=== PATIENT | female | born 1940 | race Caucasian/White ===

== ENCOUNTER → 2024-05-29 11:19 | Outpatient (REF) | payer MEDICARE, SELFPAY | LOC: RCS 11:19 | PROVIDERS: ATTENDING PHYSICIAN Internal Medicine Cardiovascular Disease; FAMILY PHYSICIAN Family Medicine | DX: I34.0 Nonrheumatic mitral (valve) insufficiency (principal) | CPT/HCPCS: 93306 ==

== ENCOUNTER 2024-09-14 06:58 | Day surgery (SDC) | payer MEDICARE, SELFPAY | END 2024-09-14 09:45 | disposition home or self-care (01) | LOC: CATH 06:58 | PROVIDERS: ATTENDING PHYSICIAN Internal Medicine Cardiovascular Disease; FAMILY PHYSICIAN Family Medicine; OTHER PHYSICIAN Internal Medicine Cardiovascular Disease | DX: I48.91 Unspecified atrial fibrillation (principal); I08.1 Rheumatic disorders of both mitral and tricuspid valves; I08.8 Other rheumatic multiple valve diseases | CPT/HCPCS: 93312; 93320; 93325 ==

== ENCOUNTER 2024-10-26 16:00 | Inpatient (IN) | payer MEDICARE, SELFPAY ==
[2024-10-22 08:39] VITALS: BMI 24.5
[2024-10-22 10:52] LABS: Urine Character Clear (Clear)
[2024-10-22 10:59] LABS: Hematocrit 36.3 % (37.0-47.0); Hemoglobin 12.0 g/dL (12.0-16.0); Mean Corp Hgb Conc. 33.1 g/dL (33.0-37.0); Mean Corpuscular Volume 97.3 fL (81.0-99.0); Nucleated Red Blood Cells % 0 %; Platelet Count 166 10^3/uL (130-400); Red Cell Dist. Width 14.1 % (11.5-14.5)
[2024-10-22 11:06] LABS: INR 0.97; PT 13.2 Sec (11.4-14.6)
[2024-10-22 11:15] LABS: Glycohemoglobin (HgbA1c) 5.7 % (4.0-5.6)
[2024-10-22 11:16] LABS: ALT (SGPT) 34 U/L (0-35); AST (SGOT) 42 U/L (14-36); Albumin 4.2 g/dl (3.5-5.0); Alkaline Phosphatase 48 U/L (38-126); Blood Urea Nitrogen 24 mg/dl (7-17); Calcium 9.4 mg/dl (8.4-10.2); Carbon Dioxide 32 mmol/L (22-30); Chloride 104 mmol/L (98-107); Estimated Creatinine Clearance 44 ml/min; Glucose 95 mg/dl (70-99); Potassium 4.3 mmol/L (3.5-5.1); Sodium 138 mmol/L (135-145); Total Protein 6.5 g/dl (6.3-8.2); eGFR > 60.00
--- NOTE | 2024-10-22 11:33 | CM ---
CM following for DC planning needs.
Met w/ patient during PATs for planned MitraClip.
Pt. tells me that she resides in a private, 1 STH w/ sig. other, Rayo. patient is functionally indep. at baseline w/ ADLs, mobility without the use of any assisted device.
Reviewed pre and post op routines.
Soap, shower instructions + MitraClip paperwork provided, reviewed.
Post op MD appointments, Cardiac Rehab, visit from [facility] reviewed.
Reviewed post op restrictions to include lifting, driving restrictions.
Plan for MitraClip 10/26.
Antic. DC plan is for home w/ [facility]itional [facility] RN.
CM to follow.
[2024-10-26] VITALS (26 sets, daily range): BP systolic 93–169; BP diastolic 51–80; BMI 22.7
[2024-10-26] MEDS: BACTROBAN 2% OINTMENT 1 APPLIC NASAL (06:00)
--- NOTE | 2024-10-26 06:11 | PTCARENOTE ---
Admitted pt to room 2252 at 0530 for scheduled TAVR. Pt aaox3, [place], [place] left at home. SR on tele monitor, VSS. Neurocheck WNL. Pt denies pain/discomfort or SOB, admission questionary completed, medications verified, chest/ groins clipped, CHG wipes
complete.Pt and family updated on plan of care and in agreement. Call mack within reach.
[2024-10-26] MEDS: ANCEF 10 IV (08:03)
[2024-10-26 08:49] LABS: ACT-LR - POC 305 Seconds (116-155)
[2024-10-26 09:11] LABS: ACT-LR - POC 390 Seconds (116-155)
--- NOTE | 2024-10-26 09:58 | CM ---
Addendum entered by Yumiko Riley 10/26/24 15:30:
Reviewed chart. Met with Mrs. Jacob and her significant other to review discharge plans. She states prior to admission she resides with her significant other in a two story home with one step to enter. She states she resides on the first floor.
She states her daughter resides on the second floor. She states prior to admission she was independent with ambulation and adls. She states she does not have any DME in the home. She states she has a prescription plan and uses [facility]. We
reviewed a home visit by the Transitional Care Nurse. She is agreeable to a home visit. Medical work-up in progress. The discharge plan is to return home with her significant other and a home visit by the Transitional Care Nurse when medically
stable.
Original Note:
Reviewed chart. Mrs. Jacob is in the operating room today. Prior to admission she resides with her significant She does not other in a one story home. Prior to admission she was independent with ambulation and adls. She does not have any DME in
the home. She has a prescription plan and uses [facility]. Medical work-up in progress. The discharge plan is to return home with her significant other and a home visit by the Transitional Care Nurse when medically stable.
--- NOTE | 2024-10-26 10:12 | ITS.CL.PN ---
Golf Club Facer - Procedure Note
Procedure
Procedure Note:
Mitral Valve Transcatheter Weha-qk-Beys Repair with MitraClip
Date of Procedure: 10/26/2024
Referring: Dr. Prince Stephenson MD
Indication: symptomatic severe mitral valve regurgitation at high surgical risk
Operators: Nancy Gage MD (interventional cardiology, co-mechanical shovel operator); Jan Isaac MD, PhD (interventional cardiology, co-mechanical shovel operator); Berry Nair MD, PhD (cardiac imaging)
Anesthesia: general anesthesia provided by the anesthesia staff
PROCEDURE: mitral transcatheter edge to edge repair with Mitraclip XTW clip
ACCESS: 25F femoral vein (closure: Perclose x2) - Ultrasound was utilized for vascular access. The vessel was visualized under ultrasound and noted to be patent. An image of the vessel was stored permanently in the patient's medical record. Under
direct ultrasound guidance, vascular access was obtained using a modified Seldinger technique and a 8 Occ[place] sheath was placed.
PROCEDURE NARRATIVE:
The patient was intubated and sedated by anesthesiology and then prepped and draped in standard sterile fashion. A LUIZA probe was placed by cardiology and imaging performed demonstrating no left atrial appendage thrombus and no pericardial effusion.
Under general anesthesia, mitral regurgitation was noted to be more moderate-severe (compared to definitively severe of prior LUIZA imaging). Under ultrasound guidance, the right femoral vein was accessed. Two Perclose ProGlide sutures were placed in
preclose fashion and an 8F sheath placed. Heparin was administered to achieve ACT>300.
Via the 8F sheath, a J-wire was placed in the SVC. The 8F sheath was exchanged for an 8.5F [place] VersaCross Sheath and the J-wire exchanged for a [place] VersaCross RF wire. Under LUIZA guidance, the sheath was navigated to an appropriate posterior
superior portion of the septum. In a 4-chamber view, height above the mitral valve annulus was measured at 4 cm. Under RF application, the RF wire crossed into the LA and position was verified in the left upper pulmonary vein on LUIZA. The sheath was
advanced through the septum to dilate the septum. The sheath was then removed, and serial dilation of the venous access site performed followed by placement of the MitraClip sheath which was advanced to the septum and crossed into the left atrium
followed by removal of the wire and dilator. Left atrial pressure was measured at 16 mmHg.
Initial clip strategy was to place a single XTW clip over the main jet originating at the lateral aspect of P2. A MitraClip XTW clip delivery system was prepared on the back table and advanced to the tip of the sheath. Under LUIZA guidance, the clip
was advanced out of the sheath to straddle position and carefully maneuvered until it was centralized above the valve plane. The clip was opened and grippers checked. Clip position, orientation, and trajectory were iteratively adjusted under 2D and
3D LUIZA guidance. In a grasping view, the clip was crossed into the LV. Position and orientation were again verified with 2D and 3D LUIZA. The clip was carefully pulled back until anterior and posterior leaflet capture was observed and the grippers
were then dropped with tissue capture observed. The clip was then closed to 60 degrees, capture was verified, and the clip was then fully closed. Mitral regurgitation was assessed as mild. Mitral gradient was 2 mmHg. Based on this, the decision was
made to release the clip. Clip release was performed in the usual fashion and the clip was verified to be stable on LUIZA and fluoroscopy after release. There was no significant change in MR or mitral gradients post release. The CDS was removed with
the guide aspirated. Left atrial pressure was measured at 15 mmHg. The sheath was removed from the LA and there was observed to be an expected ASD without significant R-L flow. There was no effusion. The sheath was removed from the venotomy and the
venotomy closed with deployment of the PerClose sutures with excellent hemostasis verified. This concluded the procedure. The patient was extubated by anesthesia and taken to the cath recovery unit in stable condition.
CONCLUSIONS: mitral transcatheter [id number]-gi-lbvi repair with placement of single Mitraclip XTW clip with reduction MR from moderate-severe to mild
RECOMMENDATIONS:
1. anticoagulation with ASA/Plavix
2. repeat TTE in AM
Copy to: Dr. Prince Stephenson MD (intramural director); Dr. Catie Monterroso MD (PCP)
Signed: Jan Isaac MD, PhD
[2024-10-26] MEDS: ANCEF IV (10:17)
--- NOTE | 2024-10-26 10:22 | ITS.CL.PN ---
Addendum entered and electronically signed by Nancy Gage MD 11/07/24 14:15:
ACCESS: Right common femoral vein, 24Fr sheath under US guidance using micropunture kit.
Ultrasound was utilized for vascular access. The right femoral vein was visualized under ultrasound, and the vessels was patent. An image was stored permanently in the patient's medical record. Under direct ultrasound guidance, a 24 [place]
sheaths was inserted into the right common femoral vein, using a micropuncture kit through a modified Seldinger technique.
Nancy Gage MD, [facility], [facility]
Original Note:
Commercial Cleaner - Procedure Note
Procedure
Procedure Note:
TRANSCATHETER EDGE - TO - EDGE MITRAL VALVE REPAIR (DELFINA)/MITRACLIP REPORT
Date: October 27, 2023
Referring: Dr. Prince Stephenson
Preoperative diagnosis: Moderate to severe degenerative mitral valve regurgitation
Postoperative diagnosis: Moderate to severe degenerative mitral regurgitation
Procedure(s): Transcatheter mitral valve edge to edge repair/MitraClip using 1 XTW
Preprocedure MR severity: Moderate to severe, 3+
Postprocedure MR severity: Mild, 1+
Interventional Cardiology Operators: Drs. Nancy Gage (Clip delivery), and Jan Isaac (trans-septal puncture)
LUIZA Switchboard And Control Room Operator(s): Dr. Berry Nair
Anesthesia: GETA provided by the anesthesia staff.
Estimated Blood Loss: Minimal
Complications: None
Condition: Stable.
PROCEDURAL DETAILS:
The patient was brought to the cardiac catheterization lab and anesthetized by the anesthesiology staff. A transesophageal probe was placed and preliminary echocardiography was performed. The patient was prepped and draped in standard sterile
fashion. The right common femoral vein was accessed using a modified Seldinger technique with a micropuncture kit under ultrasound guidance. The vein was dilated with an 8 [place] dilator then preclosed with a Perclose percutaneous suture. And 8
[place] sheath was placed in the femoral vein. Heparin [xxx] units was given.
The [place] VersaCross system was prepped on the back table. The J-wire for the versa cross was advanced into the superior vena cava and the 8 [place] sheath was removed. The transseptal sheath was advanced over the wire and into the superior vena
cava. The J-wire was removed and the versa cross wire was advanced to the distal tip of the sheath, but remained within the dilator. This sheath was positioned in the interatrial septum with confirmed position on LUIZA. Transseptal puncture was
performed by Dr. Prince Pink and the sheath was advanced into the left atrium. Additional heparin was given to achieve a therapeutic ACT. ACT was confirmed above 250 seconds. Oxygen saturation confirmed presence in the left atrium.
The MitraClip steerable sheath was prepped on the back table. The [place] sheath was withdrawn keeping the versa cross wire in the left atrium. The femoral vein was serially dilated and the steerable sheath was advanced through the vein, easily
crossing into the left atrium. Once we had satisfactory purchase of the sheath inside the left atrium the dilator and versa cross wire were removed and the steerable sheath was completely de-aired and flushed.
A(n) XTW MitraClip Delivery System was prepped on the back table. The clip was advanced through the steerable sheath and into the left atrium. The clip was oriented and advanced subvalvular to the mitral valve. Once we were satisfied with with
position, the grippers were lowered and the clip arms were tightened to 60 degrees. This demonstrated good position and clip stability. The clip was fully closed demonstrating trace to mild residual mitral regurgitation and a good tissue bridge.
Transvalvular gradient to. We were satisfied with these preliminary results and the clip was deployed. The delivery system was removed from the steerable sheath.
The mitral valve was reevaluated. Mitral valve regurgitation was now graded at mild with a systolic blood pressure 150. Mitral valve regurgitation continue to remain stable at mild with good systemic blood pressure, good tissue bridge on 3D imaging
and stable mitral valve gradient at 2 mmHg. No pericardial effusion was noted.
At this point, we were satisfied with our results. The steerable sheath was withdrawn into the right atrium, then negative tension was applied to straighten the catheter. The steerable sheath was withdrawn and the Perclose percutaneous suture was
tightened with good hemostasis.
The patient tolerated the procedure well, was brought out of anesthesia and transferred to the IVU in stable condition.
IMPLANT(S)/POSITION:
1. XTW MitraClip on lateral aspect of A2/P2
VALVE HEMODYNAMICS:
Preoperative
MR severity (0-4): 3+
Transmitral gradient (mmHg): 1
Postoperative
MR severity (0-4): 1+
Transmitral gradient (mmHg): 2
CONCLUSIONS:
1. Moderate to severe primary mitral valve regurgitation s/p successful DELFINA usingone XTW with reduction in mitral regurgitation from 3+ to 1+ and a final mean transmitral gradient of 2.
RECOMMENDATIONS:
1. Routine post procedure care.
2. Transthoracic echocardiogram ordered for tomorrow morning.
3. Antithrombotic therapy with daily baby aspirin and Plavix 75 mg daily for 3 months
Nancy Gage MD, FACC, [facility]
Copy to: Dr. Prince Stephenson
[2024-10-26] MEDS: PLAVIX 300 MG PO (11:01)
--- NOTE | 2024-10-26 11:56 | PTCARENOTE ---
assumed care of pt. pt is sb on the monitor, hr in the 60s, vss. pt offers no complaints at this time. pt educated on plan of care and pt verbalized understanding. call mack within reach.
[2024-10-26] MEDS: TOPROL XL PO (16:31)
[2024-10-26] MEDS: LIPITOR 10 MG PO (16:46)
[2024-10-26] MEDS: PEPCID 10 MG PO (16:50)
--- NOTE | 2024-10-26 18:17 | PTCARENOTE ---
pt continues to be sr on the monitor, vss. notified dr. salguero about bp of 105/64, orders not to give metoprolol and zestril. pt educated on plan of care. pt right groin oozing, manual pressure held 10 mins. dressing changed. pt now OOB to chair for
dinner. pt ambulated to br and tolerated well. call mack within reach.
--- NOTE | 2024-10-26 19:43 | PTCARENOTE ---
Assumed care of the pt @ 1900. Pt is AAOx3 SR with 1st degree AVB VSS. Rt groin site c/d/i no bleeding or hematoma. Rt wrist dressing c/d/i ecchymotic. POC updated with pt. Call mack within reach.
[2024-10-26] MEDS: COLACE 100 MG PO (21:07)
[2024-10-26] MEDS: HEPARIN 5000 UNITS SC (21:07)
[2024-10-27 04:25] VITALS: BP 100/52
[2024-10-27 04:36] VITALS: BMI 22.9
[2024-10-27] MEDS: SYNTHROID 150 MCG PO (04:45)
[2024-10-27 05:13] LABS: Hematocrit 30.8 % (37.0-47.0); Hemoglobin 10.2 g/dL (12.0-16.0); Mean Corp Hgb Conc. 33.1 g/dL (33.0-37.0); Mean Corpuscular Volume 96.3 fL (81.0-99.0); Nucleated Red Blood Cells % 0 %; Platelet Count 130 10^3/uL (130-400); Red Cell Dist. Width 14.4 % (11.5-14.5)
[2024-10-27 05:22] LABS: Blood Urea Nitrogen 20 mg/dl (7-17); Calcium 8.7 mg/dl (8.4-10.2); Carbon Dioxide 28 mmol/L (22-30); Chloride 107 mmol/L (98-107); Estimated Creatinine Clearance 54 ml/min; Glucose 99 mg/dl (70-99); Potassium 4.4 mmol/L (3.5-5.1); Sodium 138 mmol/L (135-145); eGFR > 60.00
[2024-10-27 07:55] VITALS: BP 109/62
--- NOTE | 2024-10-27 08:22 | W.PN.CARDCBS ---
Addendum entered and electronically signed by Nancy Gage MD 11/14/24 12:06:
Of note, our intent was to do the MitraClip procedure as an inpatient.
Nancy Gage MD, [facility], [facility]
Addendum entered and electronically signed by Angelita Burgess PA-C 10/27/24 08:55:
[id number]
Addendum entered and electronically signed by Kevin Palmer MD 10/27/24 08:48:
I saw and examined the patient.
The Geospatial Developer's note was reviewed and I agree with the note.
Comment:
GEN: No distress, awake, Ox3
HEENT: supple, anicteric, mmm
LUNGS: CTA, no wheezes/rales
CV: Reg, S1/S2, no murmur
ABD: soft, BS+, NT/ND
EXT: No bruit
NEURO: Gross non-focal
SKIN: No rash
Plan:
Echo reviewed with preserved ejection fraction, mean gradient of 4, and trace mitral regurgitation.
Continue Toprol. Continue aspirin and Plavix for 3 months.
Blood pressure remains marginal so we will hold lisinopril.
Stable for discharge.
Original Note:
Today's Communication / Plan
-
SBP generally less than 110 so we will hold on lisinopril 2.5 mg daily and pending BP as an outpatient can restart
Continue Toprol-XL
Ordered to take aspirin and Plavix daily, discharge med list adjusted
Discharge to home
Impression / Plan
-
PCP: Catie Monterroso
Cardiology: Dr. Stephenson
Impression:
Admitted for planned MitraClip 10/26/2024
Moderate to severe MR
Paroxysmal atrial tachycardia
HTN
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
Hyperlipidemia
Palpitations with PVCs
Hypothyroidism
LUIZA 10/26/2024: Successful deployment of MitraClip XTW, post appointment mitral regurgitation improved from moderate to severe down to mild, EF 55 to 60%
TTE 10/26/2024: Evening time study, EF 60 to 65%, normal RV size and function, s/p XTW MitraClip in place with mean gradient across the mitral valve of 4 mmHg, mild TR
Plan:
-Patient had planned MitraClip procedure on 10/26/2024 and on TTE hours after study the mean gradient across the mitral valve was 4 mmHg. On the LUIZA at time of procedure the moderate to severe MR had improved to mild.
-EF stable at 55 to 60%
-Outpatient dose of aspirin increased from MWF up to a daily dose
-New to Plavix 75 mg daily
-Outpatient dose of lisinopril 2.5 mg daily is being held for SBP less than 110. Similarly lisinopril dose was held on 10/26/2024 as well prior to procedure. We will not discharge to home on lisinopril and will follow-up on BP when we see patient
in the office
-Outpatient dose of Toprol XL 25 mg daily has been continued
-Patient is stable for discharge to home on 10/27/2024
Progress Note - Regulator Operator
Subjective
Date of Service: October 27, 2024
Feels well, not feeling lighteheaded
Objective
Labs:
10/27/24 04:29
10/27/24 04:29
Labs
Hgb 10.2 g/dL (12.0-16.0) L 10/27/24 04:29
Hct 30.8 % (37.0-47.0) L 10/27/24 04:29
Plt Count 130 10^3/uL (130-400) D 10/27/24 04:29
PT 13.2 Sec (11.4-14.6) 10/22/24 10:34
INR 0.97 10/22/24 10:34
Sodium 138 mmol/L (135-145) 10/27/24 04:29
Potassium 4.4 mmol/L (3.5-5.1) 10/27/24 04:29
BUN 20 mg/dl (7-17) H 10/27/24 04:29
Creatinine 0.8 mg/dL (0.6-1.0) 10/27/24 04:29
Glucose 99 mg/dl (70-99) 10/27/24 04:29
Vital Signs and I&O:
Vital Signs
Temp Pulse Resp BP Pulse Ox
97.6 F 66 18 100/52 96
10/27/24 07:53 10/27/24 07:53 10/27/24 07:53 10/27/24 04:25 10/27/24 07:53
Vital Signs
Temp Pulse Resp BP Pulse Ox
97.6 F 66 18 100/52 96
10/27/24 07:53 10/27/24 07:53 10/27/24 07:53 10/27/24 04:25 10/27/24 07:53
Intake & Output
10/25/24 10/26/24 10/27/24 10/28/24
06:59 06:59 06:59 06:59
Intake Total 1779
Balance 1779
Physical Exam
Physical Exam
GEN: AAO x3
LUNGS: RA, no wheeze
CV: SR on tele. Reg with ectopy, S1/S2
EXT: Right groin without hematoma or ecchymosis, right radial without hematoma or ecchymosis
SKIN: Warm, dry and pink. No rash
[2024-10-27] MEDS: THERAGRAN 1 TABLET PO (08:48)
[2024-10-27] MEDS: TOPROL XL 25 MG PO (08:48)
[2024-10-27] MEDS: PLAVIX 75 MG PO (08:48)
[2024-10-27] MEDS: VITAMIN D3 (cholecalciferol) 50 MCG PO (08:48)
[2024-10-27] MEDS: HEPARIN SC (08:49)
[2024-10-27] MEDS: COLACE 100 MG PO (08:49)
[2024-10-27] MEDS: B COMPLEX w/VITAMIN C 1 CAPLET PO (08:49)
[2024-10-27] MEDS: PEPCID 10 MG PO (08:49)
--- NOTE | 2024-10-27 08:50 | W.DS.TRANS ---
DC Summary - Quality Control Inspector Heading
-
Discharge Instructions:
Discharge Diagnosis/Procedures LUIZA (transesophageal echo)/Mitraclip 10/26/2024
Diet Low Fat,Low Cholesterol,2 Gram Sodium
Activity No strenuous activity
Driving Restrictions No driving for 1 week
Bathing Restrictions OK to Shower
Others Tests your 30-day echocardiogram is scheduled for 11/23
@ 1:00 at [facility]
Other Services Cardiac Rehab
Wound Care NO lotions, powders, or creams to puncture sites
Specialty Instructions Weigh Daily
Instructions:
Stand-Alone Forms:
Changes to Home Medications: Yes
Discharge Medications:
DC Medications w/original date entered in [employer]
cholecalciferol (vitamin D3) 50 mcg (2,000 unit) tablet 2,000 unit PO DAILY 01/16/13
docosahexaenoic acid (dha)-epa 120 mg-180 mg capsule 1 cap PO BID 01/16/13
docusate sodium 100 mg capsule 100 mg PO BID 01/16/13
levothyroxine 150 mcg tablet 150 mcg PO DAILY 01/16/13
lorazepam 0.5 mg tablet 0.5 mg PO Q4HPRN PRN anxiety 01/16/13
multivitamin (Daily Multiple tablet) 1 ea PO DAILY 01/16/13
vitamin B complex 1 ea PO DAILY 01/16/13
atorvastatin 10 mg tablet 10 mg PO QPM ##30 01/18/13
metoprolol succinate 25 mg tablet,extended release 24 hr 25 mg PO DAILY #30 tabs 01/18/13
cholecalciferol (vitamin D3) 50 mcg (2,000 unit) capsule (Vitamin D3) 50 mcg PO DAILY 09/14/24
famotidine 20 mg tablet (Pepcid) 10 mg 09/14/24
lecithin 1,200 mg capsule 1,200 mg 09/14/24
lisinopril 2.5 mg tablet 2.5 mg PO DAILY 09/14/24
Held on 10/27/24. Instructions: Resume on 11/27/24. Pending your blood pressure during the transitional care nurse visits and then at the cardiology office on 11/27/24 we may restart lisinopril at that time
mwanrjcn-ereh-[id number] 8 mg-folic 400 mcg-K 50 mcg-lutein 300 mcg tablet (Centrum Silver Women) 1 tab PO DAILY 09/14/24
aspirin 81 mg tablet 81 mg PO DAILY #1 tab 10/26/24
clopidogrel 75 mg tablet 75 mg PO DAILY #30 tabs 10/26/24
Home Medication Changes
Aspirin 81 mg daily
New to Plavix
Lisinopril on hold for hypotension
Pending Results: No
[2024-10-27] MEDS: LOW STRENGTH ASPIRIN 81 MG PO (10:25)
[2024-10-27 10:55] VITALS: BP 143/63
--- NOTE | 2024-10-27 11:13 | PTCARENOTE ---
Pt is AOx3, no complaints of pain or discomfort. SR with 1st degree HB on tele monitor, VSS. Discharge instructions reviewed, pt verbalized understanding. Discharged in stable condition, with all belongings.
[2024-10-29 09:14] LABS: ACT-LR - POC 303 Seconds (116-155)
== END 2024-10-27 11:41 | disposition home or self-care (01) | DRG 267 ==
LOC: IVU 16:00
PROVIDERS: Internal Medicine Cardiovascular Disease; ADMITTING PHYSICIAN Internal Medicine Interventional Cardiology; FAMILY PHYSICIAN Family Medicine; REFERRING PHYSICIAN Internal Medicine Cardiovascular Disease
PROC: B24BZZ4 Ultrasonography of Heart with Aorta, Transesophageal (ICD-10-PCS; 2024-10-26)
PROC: 02UG3JZ Supplement Mitral Valve with Synthetic Substitute, Percutaneous Approach (ICD-10-PCS; 2024-10-26)
DX: I34.0 Nonrheumatic mitral (valve) insufficiency (principal); Z00.6 Encounter for examination for normal comparison and control in clinical research program; I47.19 Other supraventricular tachycardia; I10 Essential (primary) hypertension; I25.10 Atherosclerotic heart disease of native coronary artery without angina pectoris; E78.5 Hyperlipidemia, unspecified; I49.3 Ventricular premature depolarization; E03.9 Hypothyroidism, unspecified; E78.00 Pure hypercholesterolemia, unspecified
CPT/HCPCS: 33418; 36415; 71046; 80048; 80053; 81003; 82248; 83036; 83880; 85025; 85347; 85610; 86850; 86900; 86901; 86920; 87070; 93005; 93308; 93321; 93325; 93355; C1760; C1894

== ENCOUNTER → 2024-11-23 13:08 | Outpatient (REF) | payer MEDICARE, SELFPAY | LOC: RCS 13:08 | PROVIDERS: ATTENDING PHYSICIAN Internal Medicine Interventional Cardiology; FAMILY PHYSICIAN Family Medicine | DX: I10 Essential (primary) hypertension (principal); Z98.890 Other specified postprocedural states; Z95.818 Presence of other cardiac implants and grafts | CPT/HCPCS: 93306 ==

== ENCOUNTER 2025-01-15 15:21 | Emergency (ER) | payer MEDICARE, SELFPAY ==
[2025-01-15 15:23] VITALS: BP 141/76
--- NOTE | 2025-01-15 16:05 | ED.SKININJ ---
HPI-Injury
General
Chief Complaint: Skin Problem
Source: patient
Exam Limitations: none
Time Seen by Provider: 01/15/25 15:46
History of Present Illness-Injury
Initial Injury comments:
84-year-old female on aspirin and Plavix presents with bleeding wound for the past 2 days. She pulled the skin tag off of her thigh and has been bleeding since. She tried pressure bandages without relief. She did not take her Plavix yesterday.
Past History
Past History
ED Past Medical History: Other (Hypothyroidism, polymyalgia rheumatica)
ED Past Surgical History: Cholecystectomy and Gynecological
Patient has exhibited threatening behavior?: No
PSI?: No
Social History
Tobacco: Non-smoker
Personal:
Phy Exam
Physical Exam
Physical Exam:
General: Well-appearing female no acute respiratory distress
Skin: Small skin avulsion noted over the anterior distal thigh with mild oozing of blood. No surrounding ecchymosis or swelling
Course
Vital Signs
Initial and Last Documented VS:
Initial Vital Signs
Temp Pulse Resp BP Pulse Ox
98.6 F 69 16 141/76 99
01/15/25 15:23 01/15/25 15:23 01/15/25 15:23 01/15/25 15:23 01/15/25 15:23
Last Documented Vital Signs
Temp Pulse Resp BP Pulse Ox
98.6 F 69 16 141/76 99
01/15/25 15:23 01/15/25 15:23 01/15/25 15:23 01/15/25 15:23 01/15/25 16:06
MDM/Problems Addressed
Differential Diagnosis Includes:
Avulsion of skin currently bleeding. That was cleansed with saline injection with 1% lidocaine with epinephrine. Pressure was held superior to the wound which seem to provide hemostasis. Silver nitrate was then used to cauterize the area.
*Pulse Oximetry
SaO2: 99
Oxygen Mode of Delivery: Room air
Patient hypoxic: no
*Critical Care Note
Total Time (30-74mins, 75-104mins- exclusive of procedures): Not Applicable
Update Note
Update Note:
Patient observed for period time after the area was cauterized. She was able to stand up and walk without any further bleeding. A dressing was applied. Stable for discharge
ED Attending Note
-
Portions of this chart may have been created with voice recognition software.� Occasional wrong word or��sound alike� substitutions may have occurred due to the inherent limitations of voice recognition software.
Discharge Plan
Departure
Patient Disposition: Home (Routine Discharge)
Date of Disposition: 01/15/25
Time of Disposition: 16:38
Patient with high blood pressure during this ER visit?: No
Discharge Problem:
Avulsion of skin
Instructions: Wound Care (DC)
Prescriptions:
No Action
lorazepam 0.5 MG tablet
0.5 mg PO Q4HPRN PRN (Reason: anxiety)
levothyroxine 150 MCG tablet
150 mcg PO DAILY
docusate sodium 100 MG capsule
100 mg PO BID
vitamin B complex 1 EACH tablet
1 ea PO DAILY
docosahexaenoic acid-epa 1 CAP capsule
1 cap PO BID
cholecalciferol (vitamin D3) 2,000 UNIT tablet
2,000 unit PO DAILY
multivitamin [Daily Multiple] 1 EACH tablet
1 ea PO DAILY
atorvastatin 10 MG tablet
10 mg PO QPM Qty: 30 11RF
metoprolol succinate 25 MG tablet extended release 24 hr
25 mg PO DAILY Qty: 30 11RF
lecithin 1,200 mg Capsule
1,200 mg
famotidine [Pepcid] 20 mg Tablet
10 mg
lisinopril 2.5 mg Tablet
2.5 mg PO DAILY
cholecalciferol (vitamin D3) [Vitamin D3] 50 mcg (2,000 unit) Capsule
50 mcg PO DAILY
Centrum Silver Women 8 mg iron-400 mcg-50 mcg Tablet
1 tab PO DAILY
clopidogrel 75 mg Tablet
75 mg PO DAILY Qty: 30 11RF
aspirin 81 mg tablet
81 mg PO DAILY Qty: 1 0RF
Referrals:
Catie Monterroso MD [Family Provider, Internal Medicine]
Activity Restrictions/Additional Instructions:
Keep current dressing on for a day. Return if needed otherwise
Interventions
Interventions:
*Risk Screen - Suicide Last Done: 01/15/25 15:25
*General Assessment Last Done: 01/15/25 15:49
*Neglect/Abuse Screening Last Done: 01/15/25 15:25
*ED- Fall Risk Assessment Last Done: 01/15/25 15:25
*ED COVID-19 Vaccine History Last Done: 01/15/25 15:25
*ED Influenza Vaccine History Last Done: 01/15/25 15:25
Discharge Date and Time
Print Language: BULGARIAN
== END 2025-01-15 16:45 | disposition home or self-care (01) ==
LOC: EMR 15:21
PROVIDERS: EMERGENCY PHYSICIAN Emergency Medicine; FAMILY PHYSICIAN Family Medicine; REFERRING PHYSICIAN Internal Medicine Interventional Cardiology
DX: S71.109A Unspecified open wound, unspecified thigh, initial encounter (principal); X83.8XXA Intentional self-harm by other specified means, initial encounter; E03.9 Hypothyroidism, unspecified; M35.3 Polymyalgia rheumatica; Z79.82 Long term (current) use of aspirin; Z79.02 Long term (current) use of antithrombotics/antiplatelets
CPT/HCPCS: 99282